=== PATIENT | female | born 1990 | race African-American/Black ===

== ENCOUNTER 2023-02-18 06:22 | Emergency (ER) | payer MEDICAID ==
[~2023-02-18] VITALS: Ht 154.9 cm; Wt 53.0 kg
[2023-02-18 07:14] VITALS: BP 131/82; RESP 16; TEMP 98; O2SAT 99
[2023-02-18 07:16] VITALS: PULSE 91
[2023-02-18 08:30] LABS: CHLORIDE 109 mEq/L (98-107)
[2023-02-18 09:51] LABS: HEMATOCRIT 37.1 % (36.0-48.0); HEMOGLOBIN 13.1 g/dL (12.0-16.0); MEAN CORPUSCULAR VOLUME 87.8 fL (81.0-99.0); PLATELET 326 x1000/uL (130-400); RED BLOOD CELL COUNT 4.23 mill/uL (4.2-5.4); RED CELL DISTRIBUTION WIDTH 13.5 % (11.6-14.6)
[2023-02-18 10:00] LABS: CLARITY URINE CLOUDY (CLEAR); COLOR URINE YELLOW (YELLOW); KETONES URINE 3+ (NEGATIVE); LEUKOCYTE ESTERASE URINE NEGATIVE (NEGATIVE); NITRITE URINE NEGATIVE (NEGATIVE); OCCULT BLOOD URINE 2+ (NEGATIVE); PH URINE 5.5 (4.5-8.0); PROTEIN URINE TRACE (NEGATIVE); SPECIFIC GRAVITY URINE 1.026 (1.005-1.030)
[2023-02-18] MEDS ORDERED: DIPHENHYDRAMINE 50MG/ML VIAL IM ONE (11:00)
[2023-02-18] MEDS ORDERED: HALOPERIDOL LACTATE 5MG/ML VIAL IM ONE (11:00)
== END 2023-02-18 12:04 | disposition home or self-care (01) ==
LOC: ER 06:35
DX: R11.10 Vomiting, unspecified (principal); Z88.1 Allergy status to other antibiotic agents
CPT/HCPCS: 80053; 81003; 81025; 83690; 85027; 84484; 36415; 71045; 96372; 99284; J1200; J1630; Z7610